=== PATIENT | female | born 1980 | race Two or more races ===

== ENCOUNTER 2024-11-13 16:12 | Emergency (ER) | payer MEDICAID, SELFPAY ==
[2024-11-13 16:19] VITALS: BP 137/73; PULSE 101; RESP 18; TEMP 36.6; O2SAT 97; BMI 28.8
--- NOTE | 2024-11-13 16:28 | PD.EDANIML ---
ED Animal Bite RME/HPI General Chief Complaint: Animal Bite Stated Complaint: BIT ON BUTTOCKS BY DOG Time Seen by Provider: 11/13/24 16:24 Arrival date/time: 11/13/24 16:12 44 year old female present to emergency room with c/o of buttucks right cheek by a dog today. unsure of tetanus shot LOCATION: buttuck SEVERITY: Symptoms are described as being severe with limitations on activities of daily living CONTEXT: dog bit buttocks DURATION/TIMING: The symptoms started approximately 1 day ASSOCIATED SYMPTOMS: The patient is unable to identify any other associated symptoms. MODIFYING FACTORS: The patient is unable to identify any alleviating or aggravating symptoms. PERTINENT ROS: no fevers, no cough, no pleuritic pain, no ripping or tearing sensations, denies any lower extremity edema and no unilateral swelling, no chest pain/shortness of breath no nausea,vomiting, diarrhea, no dizziness/headache no rash no loc/syncope episode no abd/back pain no dsyuria,urgency,frequency REVIEW OF SYSTEMS: See History of Present Illness - with the exception of those mentioned in the history of present illness, all other systems reviewed and reported as negative GENERAL: In general the patient is awake, interactive, in an emergency department gurney. HEAD/EYES/EARS/NOSE/THROAT: normo-cephalic, atraumatic, mucus membranes are moist, anicteric, palpebral conjunctiva is pink, trachea is midline. CARDIOVASCULAR: regular rate and regular rhythm, no murmurs, heart sounds are not distant, strong pulses in all four extremities that are equal and symmetric bilateral upper and lower extremities, normal capillary refill. CHEST/PULMONARY: normal chest rise and fall, good air movement, clear to auscultation bilaterally, normal inspiratory to expiratory ratios without evidence of respiratory distress. NECK: No midline/Paraspinal tenderness, no step off ROM/Strenght intact No Kernig and bruzinski sign. No trauma ABDOMEN: soft, not tender, no masses appreciated BACK: normal range of motion without pain. NEUROLOGICAL: cranio-facial features are symmetric, moves all four extremities equally without obvious limitations or weakness. EXTREMITY: no tenderness to palpation over the long bones or large joints of the bilateral upper and lower extremities, no joint swelling, no joint erythema, no signs of trauma, no unilateral leg swelling and no peripheral edema. SKIN: warm, dry, well-perfused, no jaundice, no rash, no telangiectasias or petechia. PSYCH: calm, cooperative, no evidence of psychosis or agitation Related Data Previous Rx's ?Medication ?Instructions ?Recorded amoxicillin 875 mg-potassium 1 tab PO Q12H #14 tabs 11/13/24 clavulanate 125 mg tablet ibuprofen 800 mg tablet (IBU) 800 mg PO TID PRN fever or pain 11/13/24 #30 tabs Allergies Allergy/AdvReac Type Severity Reaction Status Date / Time NKA* Allergy Uncoded 11/13/24 16:13 Course Course Course Narrative: The patient suffered a bite wound from a buttucks , but based on the history, exam, and any test performed, there does not seem to be a retained foreign body, nerve injury, vascular injury, tendon injury, or bone injury. Given the characteristics of this wound, the patient will require treatment with antibiotics. Rx: Augmentin 875mg PO BID x 7days Disposition: Patient will be discharged with strict return precautions and advice to follow up with primary MD within 24 hours for further evaluation. Quality Measures none Orders Category Date Time Status Amoxicillin/Pot Clav 875 [Augmentin 875] Med 11/13/24 16:25 Discontinued 1 tab PO X1 ONE HYDROcodone*/APAP 5/325 [[place] 5/325] Med 11/13/24 16:26 Discontinued 1 tab PO X1 ONE Ibuprofen Tab [Motrin Tab] Med 11/13/24 16:26 Discontinued 800 mg PO X1 ONE Tetanus, Diphtheria Toxoids/Pf [Tenivac-Adult] Med 11/13/24 16:25 Discontinued 0.5 ml IMI .ONCE ONE Reevaluation(s) Reevaluation #1: feels better Vital Signs Vital signs: Vital Signs Temperature 97.9 F 11/13/24 16:19 Pulse Rate 101 H 11/13/24 16:19 Respiratory Rate 18 11/13/24 16:19 Blood Pressure 137/73 H 11/13/24 16:19 Pulse Oximetry (%) 97 11/13/24 16:19 Oxygen Delivery Method Room Air 11/13/24 16:19 Animal Bite Patient data External records reviewed:: [facility] previous records Clinical information provided by:: none Social determinants that could affect healthcare access:: none Patient has the following chronic illnesses:: n/a How is presenting disease/condition affected by chronic disease/condition?: no chronic disease Evaluation data The following diagnostics were reviewed and interpreted by me:: other (specify) Lab and/or radiology exams considered but not ordered:: n/a Interpretation Summary: n/a Medications / Prescriptions Medications or Prescriptions considered but not ordered:: n/a Medication administrations:: Medication Administration History Discontinued Medications Hydrocodone Bitart/Acetaminophen (Hydrocodone/Apap 5/325 Tablet) 1 tab PO X1 ONE Stop: 11/13/24 16:27 Amoxicillin/Clavulanate Potassium (Amoxicillin/Pot Clav 875 Tablet) 1 tab PO X1 ONE Stop: 11/13/24 16:26 Ibuprofen (Ibuprofen Tab 400 Mg Tablet) 800 mg PO X1 ONE Stop: 11/13/24 16:27 Tetanus/Diphtheria Toxoids (Tetanus,Diphtheria Toxoids/Pf (Adult) 0.5 Ml Syringe) 0.5 ml IMi .ONCE ONE Stop: 11/13/24 16:26 na Consultations Consultation(s) initiated? (list below): No Diagnosis Most likely diagnosis given after review of the tests above:: dog bite Admission Indicated Admission indicated?: not indicated Admission Request Was there a request for admission?: No Disposition Plan Disposition Plan: Discharge Discharge Attestation Discharge Attestation: The patient and all family members were given an opportunity to ask questions and understood the discharge instructions. Discharge instructions specifically effects, indications for sooner follow up or return to the emergency department, and the expected course of current diagnosis. Patient condition: Stable Discharge Plan Plan Patient Disposition: HOME (Self Care) Prescriptions/Referrals Prescriptions/Med Rec: New amoxicillin-pot clavulanate 875-125 mg tablet 1 tab PO Q12H Qty: 14 0RF ibuprofen [IBU] 800 mg tablet 800 mg PO TID PRN (Reason: fever or pain) Qty: 30 0RF Problem List Clinical Impression: Dog bite Patient/Caregiver Discharge Instructions Education Materials: ED Dog Bite Print Language: Czech Stand Alone Forms: Tg Award Info., Patient Portal Info Letter
[2024-11-13] MEDS: IBUPROFEN TAB 400 MG TABLET 800 MG PO (16:35)
[2024-11-13] MEDS: TETANUS,DIPHTHERIA TOXOIDS/PF (ADULT) 0.5 ML SYRINGE IMi (16:36)
[2024-11-13] MEDS: AMOXICILLIN/POT CLAV 875 TABLET 1 TAB PO (16:36)
== END 2024-11-13 16:54 | disposition home or self-care (01) ==
LOC: SERX 16:57
PROVIDERS: Emergency Provider Family Medicine
DX: S31.805A Open bite of unspecified buttock, initial encounter (principal); W54.0XXA Bitten by dog, initial encounter; Z23 Encounter for immunization
CPT/HCPCS: 90471; 90714; 99283; A9270